=== PATIENT | female | born 1970 | race Caucasian/White ===

== ENCOUNTER 2017-06-27 10:07 | Emergency (ER) | payer SELFPAY ==
[~2017-06-27] VITALS: Ht 162.6 cm; Wt 98.5 kg
[~2017-06-27 10:07] MED LIST: Colace PO; ENDOCET 5-3251 EACH PO; FLEXERIL5 MG PO; Feosol PO; HYDROCODON-ACE1 EAC7 PO; MOTRIN600 MG PO; Motrin PO
[2017-06-27 11:13] LABS: HEMATOCRIT 38.2 % (36.0-46.0); HEMOGLOBIN 12.3 G/DL (11.9-15.5); MCH 26.6 PG (29.0-34.0); MCHC 32.2 G/DL (30.0-36.0); MCV 82.7 FL (83-99); PLATELET COUNT 278 K/uL (156-360); RBC DIS.WIDTH-CV 14.8 % (11.8-14.6); RBC DIS.WIDTH-SD 44.9 % (39-53); RED BLOOD COUNT 4.62 M/uL (3.80-5.20); WHITE BLOOD COUNT 6.6 K/uL (4.1-10.2)
[2017-06-27 11:25] LABS: ALBUMIN 4.2 g/dL (3.2-4.8)
[2017-06-27 11:26] LABS: CHLORIDE 107 mEq/L (99-109); POTASSIUM 4.9 mEq/L (3.7-5.4); SODIUM 138 mEq/L (136-147)
[2017-06-27 11:28] LABS: GLUCOSE 182 mg/dL (70-99); TOTAL PROTEIN 7.8 g/dL (6.4-8.3)
[2017-06-27 11:30] LABS: TOTAL BILIRUBIN 0.2 mg/dL (0.0-1.0)
[2017-06-27 11:31] LABS: ALKALINE PHOSPHATASE 84 IU/L (3-129)
[2017-06-27 11:32] LABS: CREATININE 0.7 mg/dL (0.6-1.3); GFR ESTIMATE (CALCULATED) > 59 mL/min/
[2017-06-27 11:33] LABS: AST (GOT) 30 IU/L (2-34); UREA NITROGEN (BUN) 8 mg/dL (9-23)
[2017-06-27 11:34] LABS: ALT (GPT) 28 IU/L (3-49)
[2017-06-27 18:04] VITALS: BP 111/86
== END 2017-06-27 18:05 | disposition home or self-care (01) ==
LOC: EME 10:07
DX: E86.0 Dehydration (principal); B34.9 Viral infection, unspecified; Z87.891 Personal history of nicotine dependence; Z87.01 Personal history of pneumonia (recurrent)
CPT/HCPCS: 71046; 80053; 85027; J7030